=== PATIENT | male | born 1960 | race Caucasian/White ===

== ENCOUNTER 2022-07-03 21:23 | Emergency (ER) | payer OTHER, MEDICARE, SELFPAY ==
--- NOTE | ~2022-07-03 | XR_ITS ---
EXAM: XR hand LT min 3V DATE: 07/03/2022 21:55 HISTORY: injury TODAY, edema, pain LT MEDIAL SIDED PAIN OF 5TH DIGIT . COMPARISON: None available. FINDINGS: Normal mineralization. Nondisplaced fracture of the fifth metacarpal shaft. No lytic or bl astic lesion. Scattered arthritic changes. No erosion or periosteal change. Soft tissues within uriel l limits. IMPRESSION: Nondisplaced fracture of the left fifth metacarpal shaft. Reviewed, dictated and finalized at location K.
[2022-07-03 21:44] VITALS: BP 145/88; PULSE 80; RESP 16; TEMP 36.7; O2SAT 97
[2022-07-03 21:48] VITALS: BP 145/88; PULSE 80; RESP 16; TEMP 36.7; O2SAT 97
--- NOTE | 2022-07-03 22:51 | ED.UPPEXIN ---
HPI - Extremity Injury (Upper) General Chief Complaint: Extremity Injury, Upper Stated Complaint: hand injury Time Seen by Provider: 07/03/22 22:18 History of Present Illness HPI narrative: 61-year-old male presents the emergency room complaints of left hand pain. Patient states that he was making elsa pigeons when one of the spring-loaded mechanisms went off causing the object to hit his hand. Patient is complaining of pain over the fifth metacarpal. Patient states pain is worse with movement and does not radiate. Related Data Allergies Allergy/AdvReac Type Severity Reaction Status Date / Time No Known Allergies Allergy Verified 07/03/22 21:49 Review of Systems Review of Systems: CONSTITUTIONAL: Denies fever, chills, or sweats. EYES: Denies visual changes, redness, or discharge. ENT: Denies rhinorrhea, congestion, sore throat, or otalgia. CARDIOVASCULAR: Denies chest pain, palpitations, or edema. RESPIRATORY: Denies cough or dyspnea. GASTROINTESTINAL: Denies abdominal pain, nausea, vomiting, or diarrhea. GENITOURINARY: Denies dysuria or hematuria. SKIN: Denies rash or itching. MUSCULOSKELETAL: Reports left hip pain NEUROLOGIC: Denies headache, numbness, dizziness, or weakness. PSYCHIATRIC: Denies anxiety or depression. Exam Narrative: GENERAL: Well-appearing, well-nourished, no physical limitations, and in no acute distress. HEAD: Normocephalic, atraumatic. EYES: Conjunctivae normal, PERRLA and EOMI. CHEST: Clear to auscultation. No respiratory distress. No wheezes rales or rhonchi. No tenderness. HEART: Regular rate and rhythm. No murmur heard. Normal peripheral pulses. EXTREMITIES: Left hand: Tenderness and swelling over the fifth metacarpal. He has full range of motion of the fifth MCP joint. Neurovascular is intact distally SKIN: Warm, dry, no rash. No noted wounds NEURO: No focal deficits. Alert and oriented x3. MAEW. CN's II-XI intact bilaterally, normal gait PSYCH: Cooperative. Normal mood and affect. Course Vital Signs Vital signs: Vital Signs Temperature 36.7 C 07/03/22 21:44 Pulse Rate 80 07/03/22 21:44 Respiratory Rate 16 07/03/22 21:44 Blood Pressure 145/88 H 07/03/22 21:44 Pulse Oximetry 97 07/03/22 21:44 Oxygen Delivery Room Air 07/03/22 21:44 Temperature 36.7 C 07/03/22 21:48 Pulse Rate 80 07/03/22 21:48 Respiratory Rate 16 07/03/22 21:48 Blood Pressure 145/88 H 07/03/22 21:48 Pulse Oximetry 97 07/03/22 21:48 Oxygen Delivery Room Air 07/03/22 21:48 Discharge Plan Discharge Clinical Impression: Fracture of hand Patient Disposition: Home, Self-Care Condition: Stable Instructions: Antibiotic Form, Hand Fracture (ED) Prescriptions: New hydrocodone-acetaminophen 5-325 mg tablet 1 tablet PO Q8H PRN (Reason: pain) Qty: 14 0RF Follow-up/Referrals: PHYSICIAN NOT ON STAFF,NONSTAFF [Primary Care Provider] - Time of Disposition: 22:55
[2022-07-04 00:51] VITALS: BP 135/76; PULSE 78; RESP 20; TEMP 36.7; O2SAT 98
== END 2022-07-04 00:52 | disposition home or self-care (01) ==
LOC: ANHED 23:07
PROVIDERS: Emergency Provider Nurse Practitioner Family
DX: S62.357A Nondisplaced fracture of shaft of fifth metacarpal bone, left hand, initial encounter for closed fracture (principal); W20.8XXA Other cause of strike by thrown, projected or falling object, initial encounter
CPT/HCPCS: 29125; 73130; 99284